=== PATIENT | female | born 1955 | race Two or more races ===

== ENCOUNTER 2017-07-29 16:29 | Emergency (ER) | payer OTHER ==
--- NOTE | 2017-07-29 17:05 | ER Document Report ---
ED Medical Screen (RME) - General Chief Complaint: Dizziness Stated Complaint: DIZZINESS Time Seen by Provider: 07/29/17 16:54 Mode of Arrival: Ambulatory Information source: Patient Notes: 62-year-old female presents with multitude of complaints including dizziness headache numbness of her left arm chest pain. Patient notes her symptoms worsen when she moves her neck feels the pain going from her neck down to her arm. She denies any confusion. I have greeted and performed a rapid initial assessment of this patient. A comprehensive ED assessment and evaluation of the patient, analysis of test results and completion of the medical decision making process will be conducted by additional ED providers. PHYSICAL EXAMINATION: GENERAL: Well-appearing, well-nourished and in no acute distress. HEAD: Atraumatic, normocephalic. EYES: Pupils equal round extraocular movements intact, conjunctiva are normal. ENT: Nares patent NECK: Normal range of motion reproducible numbness pain with movement of neck LUNGS: No respiratory distress Musculoskeletal: Normal range of motion NEUROLOGICAL: Normal speech, normal gait. PSYCH: Normal mood, normal affect. SKIN: Warm, Dry, normal turgor, no rashes or lesions noted. TRAVEL OUTSIDE OF THE [place] IN LAST 30 DAYS: No - Related Data Allergies/Adverse Reactions: No Known Allergies Allergy (Verified 07/29/17 16:31) Home Medications: Current Home Medications No Home Medications 07/29/17 [History] Past Medical History Renal/ Medical History: Denies: Hx Peritoneal Dialysis - Immunizations Hx Diphtheria, Pertussis, Tetanus Vaccination: Yes - UTD Physical Exam - Vital signs Vitals: Temp Pulse Resp BP Pulse Ox 97.9 F 64 20 146/68 H 97 07/29/17 16:31 07/29/17 16:31 07/29/17 16:31 07/29/17 16:31 07/29/17 16:31 Course - Vital Signs Vital signs: Temp Pulse Resp BP Pulse Ox 97.9 F 64 20 146/68 H 97 07/29/17 16:31 07/29/17 16:31 07/29/17 16:31 07/29/17 16:31 07/29/17 16:31
[2017-07-29 17:37] LABS: ABSOLUTE EOSINOPHILS # (AUTO) 0.1 10^3/uL (0.0-0.6); ABSOLUTE LYMPHOCYTES (AUTO) 1.9 10^3/uL (0.5-4.7); ABSOLUTE MONOCYTES (AUTO) 0.5 10^3/uL (0.1-1.4); ABSOLUTE NEUT (AUTO) 4.7 10^3/uL (1.7-8.2); BASOPHILS % (AUTO) 0.5 % (0-2); EOSINOPHILS % (AUTO) 1.3 % (0-6); HEMATOCRIT 40.2 % (36.0-47.0); HEMOGLOBIN 13.5 g/dL (12.0-15.5); HGB HCT DIFFERENCE 0.3; LYMPHOCYTES % (AUTO) 26.9 % (13-45); MEAN CORPUSCULAR HEMOGLOBIN 30.5 pg (27.0-33.4); MEAN CORPUSCULAR HGB CONC 33.6 g/dL (32.0-36.0); MEAN CORPUSCULAR VOLUME 91 fl (80-97); MONOCYTES % (AUTO) 6.5 % (3-13); RED BLOOD COUNT 4.43 10^6/uL (3.72-5.28); RED CELL DISTRIBUTION WIDTH 14.4 % (11.5-14.0); SEGMENTED NEUTROPHILS % (AUTO) 64.8 % (42-78); WHITE BLOOD COUNT 7.2 10^3/uL (4.0-10.5)
[2017-07-29 17:41] LABS: PROTHROMBIN TIME 12.8 SEC (11.4-15.4)
--- NOTE | 2017-07-29 17:41 | RADIOLOGY REPORT (SQ) ---
EXAM DESCRIPTION: CHEST SINGLE VIEW COMPLETED DATE/TIME: 07/29/2017 5:28 pm REASON FOR STUDY: dizzy numb COMPARISON: None. EXAM PARAMETERS: NUMBER OF VIEWS: One view. TECHNIQUE: Single frontal radiographic view of the chest acquired. RADIATION DOSE: NA LIMITATIONS: None. FINDINGS: LUNGS AND PLEURA: No opacities, masses or pneumothorax. No pleural effusion. MEDIASTINUM AND HILAR STRUCTURES: No masses. Contour normal. HEART AND VASCULAR STRUCTURES: Heart normal in size. Normal vasculature. BONES: No acute findings. HARDWARE: None in the chest. OTHER: No other significant finding. IMPRESSION: NO ACUTE RADIOGRAPHIC FINDING IN THE CHEST. TECHNICAL DOCUMENTATION: JOB ID: [id number] [employer]- All Rights Reserved
[2017-07-29 17:42] LABS: PARTIAL THROMBOPLASTIN TIME 30.2 SEC (23.5-35.8)
--- NOTE | 2017-07-29 17:42 | RADIOLOGY REPORT (SQ) ---
EXAM DESCRIPTION: CT HEAD WITHOUT COMPLETED DATE/TIME: 07/29/2017 5:31 pm REASON FOR STUDY: dizzy numb COMPARISON: 11/21/2011 TECHNIQUE: Axial images acquired through the brain without intravenous contrast. Images reviewed wi th bone, brain and subdural windows. Images stored on PACS. All CT scanners at this facility use dose modulation, iterative reconstruction, and/or weight based d osing when appropriate to reduce radiation dose to as low as reasonably achievable (ALARA). [facility]: Dose Right [facility]: CareDose [facility]: Dose Right [facility]: Teradose 4D [facility]: [email or web address] RADIATION DOSE: Up-to-date CT equipment and radiation dose reduction techniques were employed. CTDIv ol: 64.6 mGy. DLP: 1034 mGy-cm. mGy. LIMITATIONS: None. FINDINGS: VENTRICLES: Normal size and contour. CEREBRUM: No masses. No hemorrhage. No midline shift. No evidence for acute infarction. Normal gra y/white matter differentiation. No areas of low density in the white matter. CEREBELLUM: No masses. No hemorrhage. No alteration of density. No evidence for acute infarction. EXTRAAXIAL SPACES: No fluid collections. No masses. ORBITS AND GLOBE: No intra- or extraconal masses. Normal contour of globe without masses. CALVARIUM: No fracture. PARANASAL SINUSES: No fluid or mucosal thickening. SOFT TISSUES: No mass or hematoma. OTHER: No other significant finding. IMPRESSION: NORMAL BRAIN CT WITHOUT CONTRAST. EVIDENCE OF ACUTE STROKE: NO. COMMENT: Quality ID # [id number]: Final reports with documentation of one or more dose reduction techniques (e.g., Automated exposure control, adjustment of the mA and/or kV according to patient size, use of iterative reconstruction technique) TECHNICAL DOCUMENTATION: JOB ID: [id number]- All Rights Reserved
[2017-07-29 17:58] LABS: ALANINE AMINOTRANSFERASE 29 U/L (9-52); ALBUMIN 4.4 g/dL (3.5-5.0); ALKALINE PHOSPHATASE 91 U/L (38-126); ANION GAP 11 (5-19); ASPARTATE AMINO TRANSFERASE 17 U/L (14-36); BILIRUBIN,DIRECT 0.4 mg/dL (0.0-0.4); BILIRUBIN,TOTAL 0.4 mg/dL (0.2-1.3); BLOOD UREA NITROGEN 16 mg/dL (7-20); CALCIUM 9.5 mg/dL (8.4-10.2); CARBON DIOXIDE 28 mmol/L (22-30); CHLORIDE 104 mmol/L (98-107); CREATINE KINASE 59 U/L (30-135); CREATININE RESULT 0.86 mg/dL (0.52-1.25); GLUCOSE 103 mg/dL (75-110); POTASSIUM 4.5 mmol/L (3.6-5.0); SODIUM 142.9 mmol/L (137-145); TOTAL PROTEIN 7.4 g/dL (6.3-8.2)
[2017-07-29 18:09] LABS: CREATINE KINASE MB 0.56 ng/mL (<4.55)
--- NOTE | 2017-07-29 18:09 | ER Document Report ---
ED Dizziness/Weakness - General Mode of Arrival: Ambulatory Information source: Patient TRAVEL OUTSIDE OF THE [place] IN LAST 30 DAYS: No - HPI Patient complains to provider of: Dizziness Associated symptoms: Chest pain, Nausea <NAGELIQUE BRAR - Last Filed: 07/29/17 23:02> <HIEU CANNON - Last Filed: 07/29/17 23:17> - General Chief Complaint: Dizziness Stated Complaint: DIZZINESS Time Seen by Provider: 07/29/17 16:54 Notes: Patient is a 62 year old female who presents to the emergency department complaining of a sudden onset of dizziness upon standing up at chair with associated pain and numbness in her left arm onset this afternoon. Patient states her symptoms started at work after she ate lunch. Patient states that she was sitting at her desk and every time she stood up she would get dizzy and the room would go dark, like she was about to have a syncopal episode. Patient states that she had a pain in her neck which radiated into her left shoulder and left hand. Patient states that her vision was also blurry and she was nauseous. Patient states that she does not have any chest pain, although she states her chest feels tight. At beside, patient states that she is no longer dizzy and her left arm is still numb. (ANGELIQUE BRAR) - Related Data Allergies/Adverse Reactions: No Known Allergies Allergy (Verified 07/29/17 18:53) Past Medical History - General Information source: Patient - Social History Smoking Status: Never Smoker Cigarette use (# per day): No Chew tobacco use (# tins/day): No Smoking Education Provided: No Frequency of alcohol use: None Family History: Hypertension Patient has suicidal ideation: No Patient has homicidal ideation: No - Immunizations Hx Diphtheria, Pertussis, Tetanus Vaccination: Yes - UTD <ANGELIQUE BRAR - Last Filed: 07/29/17 23:02> Review of Systems - Review of Systems Constitutional: No symptoms reported EENT: See HPI, Blurred vision Cardiovascular: See HPI, Chest pain, Dizziness Respiratory: No symptoms reported Gastrointestinal: No symptoms reported Genitourinary: No symptoms reported Female Genitourinary: No symptoms reported Musculoskeletal: No symptoms reported Skin: No symptoms reported Hematologic/Lymphatic: No symptoms reported Neurological/Psychological: See HPI, Numbness -: Yes All other systems reviewed and negative <ANGELIQUE BRAR - Last Filed: 07/29/17 23:02> Physical Exam <ANGELIQUE BRAR - Last Filed: 07/29/17 23:02> <HIEU CANNON - Last Filed: 07/29/17 23:17> - Vital signs Vitals: Temp Pulse Resp BP Pulse Ox 97.9 F 64 20 146/68 H 97 07/29/17 16:31 07/29/17 16:31 07/29/17 16:31 07/29/17 16:31 07/29/17 16:31 - Notes Notes: GENERAL: Alert, interacts well. No acute distress. HEAD: Normocephalic, atraumatic. EYES: Pupils equal, round, and reactive to light. Extraocular movements intact. ENT: Oral mucosa moist, tongue midline. NECK: Full range of motion. Supple. Trachea midline. LUNGS: Clear to auscultation bilaterally, no wheezes, rales, or rhonchi. No respiratory distress. HEART: Bradycardia and regular rhythm. No murmurs, gallops, or rubs. ABDOMEN: Soft, non-tender. Non-distended. Bowel sounds present in all 4 quadrants. EXTREMITIES: Moves all 4 extremities spontaneously. No edema, radial and dorsalis pedis pulses 2/4 bilaterally. No cyanosis. NEUROLOGICAL: Alert and oriented x3. Normal speech. cranial nerves II through XII grossly intact. Biceps and patellar DTRs 2+ bilaterally. Could not elicit any symptoms via Bokeelia-Hallpike test. Negative pronator drift. Able to heel-walk, toe-walk and ambulate normally around the room. PSYCH: Normal affect, normal mood. SKIN: Warm, dry, normal turgor. No rashes or lesions noted. BACK: Left trapezius muscle and left paraspinal muscle near cervical spine are tender to palpation. (ANGELIQUE BRAR) Course - Laboratory Result Diagrams: 07/29/17 17:15 07/29/17 17:15 <ANGELIQUE BRAR - Last Filed: 07/29/17 23:02> - Laboratory Result Diagrams: 07/29/17 17:15 07/29/17 17:15 <HIEU CANNON - Last Filed: 07/29/17 23:17> - Re-evaluation Re-evalutation: 07/29/17 22:11 CBC unremarkable, coags normal, CMP unremarkable, cardiac enzymes negative 2, EKG nonischemic, chest x-ray shows no acute process, CT scan of the head does not show any evidence of new or old infarction, given the left-sided neck pain, dizziness and symptoms rating down the left arm I was concerned for the possibility of a carotid or vertebral dissection, CT angiogram of the neck and head was ordered and found to be negative. All with the patient's symptoms have completely resolved, this appears to be triggered intermittent dizziness which is most likely peripheral process. Symptoms have entirely resolved, symptoms were previously only there upon changing position. Recommend the patient drink plenty of fluids, change positions slowly and follow-up with her [employer] as an outpatient. Patient is also prescribed Robaxin as a muscle relaxer for the reproducible tenderness to palpation that she has along her left trapezius. Patient may have a peripherally pinched nerve. She should return for any new or concerning symptoms including weakness, persistent recurrent dizziness, facial droop or any new or concerning symptoms. (HIEU CANNON) - Vital Signs Vital signs: Temp Pulse Resp BP Pulse Ox 97.9 F 60 23 H 136/83 H 97 07/29/17 16:31 07/29/17 20:13 07/29/17 22:00 07/29/17 21:01 07/29/17 21:01 - Laboratory Laboratory results interpreted by me: 07/29/17 17:15 RDW 14.4 H - EKG Interpretation by Me Additional EKG results interpreted by me: 07/29/17 22:12 EKG shows sinus rhythm at a rate of 60, normal axis, normal intervals, no ST segment elevations or depressions, isolated T-wave inversions in V2, T-wave flattening in lead III, this is very nonspecific, no evidence of acute infarction. As interpreted by me. (HIEU CANNON) Discharge <ANGELIQUE BRAR - Last Filed: 07/29/17 23:02> <HIEU CANNON - Last Filed: 07/29/17 23:17> - Discharge Clinical Impression: Orthostatic dizziness, Left arm pain, Paresthesia of left arm Hypertension Qualifiers: Hypertension type: essential hypertension Qualified Code(s): I10 - Essential ( primary) hypertension Condition: Stable Disposition: HOME, SELF-CARE Additional Instructions: There is no evidence of stroke, the CAT scan of your neck did not show any problems with the blood vessels in your neck. The pain in your arm likely comes from the muscle spasm that I can feel on the left side of your neck and her left trapezius. I have prescribed Robaxin to help with the symptoms, this is a muscle relaxer. It can make you drowsy, please do not drive while taking this medication. Your dizziness only appears when you are changing positions, specifically from sitting to standing. Please change position very slowly or else you might fall. Please drink plenty of fluids as the symptoms can come from dehydration. If the symptoms persist please consider following up with a [employer] or a neurologist. Please return to the emergency department for weakness on one side of your body or the other, headache, complete numbness or inability to use the arm or any new or concerning symptoms. Prescriptions: Methocarbamol [Robaxin 750 mg Tablet] 750 mg PO ASDIR PRN #40 tablet PRN Reason: Forms: Elevated Blood Pressure Referrals: JHONNY HURST MD [ACTIVE STAFF] - Follow up as needed VERÓNICA GONZALEZ MD [ACTIVE STAFF] - Follow up as needed Scribe Attestation: 07/29/17 23:17 I personally performed the services described in the documentation, reviewed and edited the documentation which was dictated to the scribe in my presence, and it accurately records my words and actions. (HIEU CANNON) Scribe Documentation - Scribe Written by Marva:: Marva Barahona, 07/29/2017 19:32 acting as scribe for :: Kana <ANGELIQUE BRAR - Last Filed: 07/29/17 23:02>
[2017-07-29 18:10] LABS: TROPONIN I < 0.012 ng/mL
--- NOTE | 2017-07-29 20:05 | RADIOLOGY REPORT (SQ) ---
EXAM DESCRIPTION: CTA HEAD; CTA NECK COMPLETED DATE/TIME: 07/29/2017 7:53 pm; 07/29/2017 7:54 pm REASON FOR STUDY: dizziness, neck pain, r/o dissection TECHNIQUE: Axial dynamic scanning technique with dynamic contrast enhancement through the extra-aircraft seat upholsterer nial carotid and vertebral arteries. Multiplanar reconstruction. 3-D MIPS and Volume-rendered imag es acquired at the workstation and saved to PACS. Images are reviewed in soft tissue, bone, lung w indows. All CT scanners at this facility use dose modulation, iterative reconstruction, and/or weight based d osing when appropriate to reduce radiation dose to as low as reasonably achievable (ALARA). [facility]: Dose Right [facility]: CareDose [facility]: Dose Right [facility]: Teradose 4D [facility]: [employer] Advanced 3D imaging as volume-rendering, MIPs, SSD performed? No CONTRAST TYPE AND DOSE: contrast/concentration: Isovue 370.00 mg/ml; Total Contrast Delivered: 75.0 ml; Total Saline Delivered: 75.0 ml COMPARISON: Noncontrast head CT 07/29/2017 RENAL FUNCTION: BUN 16; creatinine 0.86 LIMITATIONS: None. FINDINGS: AORTIC ARCH: Normal three-vessel origin. Bilateral subclavian arteries are patent. No d issection. RIGHT CAROTIDS: Patent common, internal and external carotid arteries without suggestion of significa nt stenosis or irregular plaque. No dissection. RIGHT VERTEBRAL: Patent. No dissection. LEFT CAROTIDS: Patent common, internal and external carotid arteries without suggestion of significan t stenosis or irregular plaque. No dissection. LEFT VERTEBRAL: Patent. No dissection. [place]: The anterior, middle, posterior cerebral arteries are all patent. No evidence of a neurysm or focal stenosis. POSTERIOR CIRCULATION: The distal vertebral arteries are patent as is the basilar artery. No aneurysm . BRAIN: No gross enhancing lesions as visualized. OTHER: No other significant finding. IMPRESSION: NORMAL CTA OF THE CAROTID ARTERIES, VERTEBRAL ARTERIES, AND [place]. . COMMENT: Quality ID #195: Measurements of distal internal carotid diameter were used as the denomina tor for stenosis measurement. TECHNICAL DOCUMENTATION: JOB ID: [id number] Quality ID # 436: Final reports with documentation of one or more dose reduction techniques (e.g., Au tomated exposure control, adjustment of the mA and/or kV according to patient size, use of iterative reconstruction technique) 2010 [employer]- All Rights Reserved
--- NOTE | 2017-07-29 20:05 | RADIOLOGY REPORT (SQ) ---
EXAM DESCRIPTION: CTA HEAD; CTA NECK COMPLETED DATE/TIME: 07/29/2017 7:53 pm; 07/29/2017 7:54 pm REASON FOR STUDY: dizziness, neck pain, r/o dissection TECHNIQUE: Axial dynamic scanning technique with dynamic contrast enhancement through the extra-aircraft cleaner nial carotid and vertebral arteries. Multiplanar reconstruction. 3-D MIPS and Volume-rendered imag es acquired at the workstation and saved to PACS. Images are reviewed in soft tissue, bone, lung w indows. All CT scanners at this facility use dose modulation, iterative reconstruction, and/or weight based d osing when appropriate to reduce radiation dose to as low as reasonably achievable (ALARA). [facility]: Dose Right [facility]: CareDose [facility]: Dose Right [facility]: Teradose 4D [facility]: [facility] Advanced 3D imaging as volume-rendering, MIPs, SSD performed? No CONTRAST TYPE AND DOSE: contrast/concentration: Isovue 370.00 mg/ml; Total Contrast Delivered: 75.0 ml; Total Saline Delivered: 75.0 ml COMPARISON: Noncontrast head CT 07/29/2017 RENAL FUNCTION: BUN 16; creatinine 0.86 LIMITATIONS: None. FINDINGS: AORTIC ARCH: Normal three-vessel origin. Bilateral subclavian arteries are patent. No d issection. RIGHT CAROTIDS: Patent common, internal and external carotid arteries without suggestion of significa nt stenosis or irregular plaque. No dissection. RIGHT VERTEBRAL: Patent. No dissection. LEFT CAROTIDS: Patent common, internal and external carotid arteries without suggestion of significan t stenosis or irregular plaque. No dissection. LEFT VERTEBRAL: Patent. No dissection. [place]: The anterior, middle, posterior cerebral arteries are all patent. No evidence of a neurysm or focal stenosis. POSTERIOR CIRCULATION: The distal vertebral arteries are patent as is the basilar artery. No aneurysm . BRAIN: No gross enhancing lesions as visualized. OTHER: No other significant finding. IMPRESSION: NORMAL CTA OF THE CAROTID ARTERIES, VERTEBRAL ARTERIES, AND [place]. . COMMENT: Quality ID #[id number]: Measurements of distal internal carotid diameter were used as the denomina tor for stenosis measurement. TECHNICAL DOCUMENTATION: JOB ID: [id number] Quality ID # 436: Final reports with documentation of one or more dose reduction techniques (e.g., Au tomated exposure control, adjustment of the mA and/or kV according to patient size, use of iterative reconstruction technique) 2010 [employer]- All Rights Reserved
[2017-07-29] MEDS ORDERED: METHOCARBAMOL 750 MG TABLET PO ONE (21:13)
--- NOTE | 2017-07-29 21:16 | EKG REPORT ---
SEVERITY:- NORMAL ECG - SINUS RHYTHM : Confirmed by: Victorino Alcantara MD 29-Jul-2017 21:16:19
[2017-07-29 21:45] VITALS: BP 136/83
== END 2017-07-29 22:19 | disposition home or self-care (01) ==
LOC: ER 16:29
DX: R42 Dizziness and giddiness (principal); M79.602 Pain in left arm; R20.0 Anesthesia of skin; M54.2 Cervicalgia; H53.8 Other visual disturbances; R11.0 Nausea; R07.89 Other chest pain; I10 Essential (primary) hypertension
CPT/HCPCS: 93005; 99285; 36415; 82553; 82550; 85025; 85610; 85730; 80053; 84484; 71010; 70450; 70496; 70498; 93010; J3490

== ENCOUNTER → 2018-07-24 | Outpatient (CLI) | payer BC ==
--- NOTE | 2018-07-24 09:14 | WOMENS IMAGING REPORT ---
EXAM DESCRIPTION: 3D SCREENING MAMMO BILAT COMPLETED DATE/TIME: 07/24/2018 7:22 am REASON FOR STUDY: SCREENING MAMMO Z12.31 ENCNTR SCREEN MAMMOGRAM FOR MALIGNANT NEOPLASM OF LUCILA COMPARISON: 2013 TECHNIQUE: Standard craniocaudal and mediolateral oblique views of each breast recorded using digita l acquisition and breast tomosynthesis. LIMITATIONS: None. FINDINGS: No masses, calcifications or architectural distortion. No areas of suspicion. Read with the assistance of CAD. .[facility] - R2 Cenova Version 1.3 .[facility] Imaging - R2 Cenova Version 1.3 .[facility] - R2 Cenova Version 2.4 .[facility] [place] - R2 Cenova Version 2.4 .[facility] - R2 [employer]ic Version 9.2 IMPRESSION: NORMAL MAMMOGRAM. BIRADS 1. BREAST DENSITY: b. There are scattered areas of fibroglandular density. BIRAD: 1 NEGATIVE RECOMMENDATION: ROUTINE SCREENING COMMENT: The patient has been notified of the results by letter per SA requirements. Additional no tification policies are in place for contacting patient with suspicious or incomplete findings. Quality ID #225: The [employer] recommends an annual screening mammogram for women aged 40 years or over. This facility utilizes a reminder system to ensure that all patients receive reminder letters, and/or direct phone calls for appointments. This includes reminders for routine scr eening mammograms, diagnostic mammograms, or other Breast Imaging Interventions when appropriate. Th is patient will be placed in the appropriate reminder system. The [employer] (ACR) has developed recommendations for screening MRI of the breast s in certain patient populations, to be used in conjunction with mammography. Breast MRI surveillanc e may be appropriate for women with more than 20% lifetime risk of developing breast cancer as deter mined by genetic testing, significant family history of the disease, or history of mantle radiation f or Hodgkins Disease. ACR Practice Guidelines 2008. DBT Technology DBT is a type of tomographic mammography. With conventional mammography, overlapping breast tissue ma y make lesions difficult to detect, even with good compression. DBT uses an x-ray tube that rotates a round the breast, taking images at different angles. These images are then combined to create thin sl ices of the breast that the radiologist can view as a 3D reconstruction. The [employer] unit can perform full-field digital mammograms (2D imaging); or DBT (3D imaging); or both, in a combination mode that quickly performs both the mammogram and the tomosynthesis scan while the breast is still compressed. PQRS 6045F: Fluoroscopic imaging is not utilized for breast tomosynthesis. TECHNICAL DOCUMENTATION: FINDING NUMBER: (1) ASSESSMENT: (1) JOB ID: [id number] [employer]- All Rights Reserved Reading location - IP/workstation name: [email or web address]
== END ==
LOC: WI 07:44
PROVIDERS: ATTEND Midwife
DX: Z12.31 Encounter for screening mammogram for malignant neoplasm of breast (principal)
CPT/HCPCS: 77063; 77067